=== PATIENT | female | born 1960 | race Caucasian/White ===

== ENCOUNTER → 2021-12-09 | Day surgery (SDC) | payer MEDICARE ==
[~2021-12-09] VITALS: Ht 157.5 cm; Wt 63.0 kg
[~2021-12-09] MED LIST: BUTA-177 PO; CELE200C PO; CETI10TA16 PO; CYCL10TA19 PO; DOXY-181 PO; FAMO40TA57 PO; FLUT100D2 IH; GABA-585 PO; HYDR12.575 PO; IV RINGERS,LACTATED 1000ML 1,000 ML IV SCH; MIRT-7 PO; MONT10TA49 PO; OXYB10TA26 PO; PROPOFOL 10 MG/ML (20ML) VIAL. IV ONE; ROPI0.254 PO; SERT100T PO; SPIR50TA4 PO
[2021-12-09 09:24] VITALS: BP 187/67
[2021-12-09 10:20] VITALS: BP 122/74
--- NOTE | 2021-12-10 12:13 | PATHOLOGY ---
[facility] Accession Number: [id number] . 01 Material submitted: . PART A: small bowel - SMALL BOWEL BIOPSY PART B: stomach - ANTRUM AND BODY BIOPSY PART C: esophagus - DISTAL ESOPHAGUS BIOPSY. Modifiers: distal . 01 Clinical history: . REFLUX, LEFT ABDOMINAL PAIN . 02 Diagnosis: A. Small bowel biopsies: - No diagnostic abnormalities. . B. Gastric biopsies, gastric body and antrum: - Reactive gastropathy. . C. Esophageal biopsies, distal esophagus: - Reflux changes. . (MARYM:sudha; 12/10/2021) [facility] 12/10/2021 1015 Local . 02 Comment: Sections of the small bowel biopsy reveal segments of duodenal mucosa. Where best oriented, the mucosal villi show no sprue-like changes or significant inflammatory changes. . Sections of the gastric biopsy reveal segments of gastric body and gastric antral mucosa. The gastric body mucosa shows superficial congestion and slight chronic inflammation. The gastric antral mucosa shows mild foveolar hyperplasia, congestion, and slight chronic inflammation. A properly controlled immunoperoxidase stain for Helicobacter is negative for Helicobacter organisms. The findings are consistent with a reactive gastropathy. . Sections of the distal esophageal biopsy reveal segments of hyperplastic squamous esophageal mucosa, esophagogastric mucosa and gastric mucosa showing mild to moderate chronic inflammation. The findings are consistent with reflux changes. There is no evidence of Dillon's change, dysplasia or malignancy. . (EVER:sudha; 12/10/2021) . . Special stain performed: Immunoperoxidase stain for Helicobacter on B1 . Electronically signed: . Uriel Prather MD, Pathologist NPI- [id number] . 01 Gross description: . A. The specimen is received in formalin, labeled "Mckeon, Aliza, small bowel bx" and the specimen consists of multiple joe irregular tissues aggregating 0.5 x 0.5 x 0.1 cm which are filtered and submitted in toto in A1. . B. The specimen is received in formalin, labeled "Mckeon, Aliza, antrum and body BX" and consists of 3 joe irregular tissues aggregating 0.6 x 0.4 x 0.2 cm which are submitted in toto in B1. . C. The specimen is received in formalin, labeled "Mckeon, Aliza, distal esophagus BX" and consists of 3 joe irregular tissues aggregating 0.5 x 0.3 x 0.1 cm which are filtered and submitted in toto in C1.(KOBUK; 12/09/2021) DKA/DKA 12/09/2021 1520 Local . 02 Pathologist provided ICD-10: K31.9, K21.9 . 02 CPT . 341343, 456112, 208036, [id number] Specimen Comment: A courtesy copy of this report has been sent to [phone], [phone] Specimen Comment: [id number] Specimen Comment: Report sent to / DR BARRON Specimen Comment: A duplicate report has been generated due to demographic updates. Performed at: 01 [facility] [address], [place], [place] [id number] MD Jake Valdez MD Phone: [phone] Performed at: 02 [facility] [address] [place], [place] [id number] MD Uriel Prather MD Phone: [phone]
== END | disposition home or self-care (01) ==
LOC: ENDOS 09:09
PROVIDERS: ATTEND Internal Medicine Gastroenterology
DX: K21.00 Gastro-esophageal reflux disease with esophagitis, without bleeding (principal); K31.89 Other diseases of stomach and duodenum; K44.9 Diaphragmatic hernia without obstruction or gangrene; K29.50 Unspecified chronic gastritis without bleeding; I10 Essential (primary) hypertension; M19.90 Unspecified osteoarthritis, unspecified site; F32.9 Major depressive disorder, single episode, unspecified; Z90.710 Acquired absence of both cervix and uterus; Z98.890 Other specified postprocedural states; Z79.899 Other long term (current) drug therapy; Z90.49 Acquired absence of other specified parts of digestive tract
CPT/HCPCS: 43239; 88305; 88342; J2704